=== PATIENT | female | born 1965 | race Two or more races ===

== ENCOUNTER 2024-11-04 15:46 | Outpatient (AMB) | payer OTHER, SELFPAY ==
--- NOTE | 2024-11-04 15:51 | MHC.OFFVIS ---
Intake Visit Reasons: Follow up Headaches HPI Comments Details: 59 yo woman, probably dependent upon opiates, also taking lorazepam and zolpidem, has depression, MCI, and migraine/chronic tension type headaches. She is presenting with chronic headache and blurred vision. She has daily headaches of varying intensity, at times escalating to the severity of migraines, which incapacitate her. On less severe days, she persists with her regular routine despite the discomfort. Complaints of blurred vision are significant, characterized by a persistent sensation of a film over her eyes, and are managed with glasses, although they were recommended corrective surgery which she has declined. Additionally, the patient suffers from Temporomandibular Joint Dysfunction (TMD), where the repetitive clenching and jaw tension potentially aggravate the headache symptoms, sometimes affecting her jaw mobility. The overarching symptoms point towards chronic headaches with possible overlapping tension-type factors exacerbated by jaw dysfunction. Review of Systems Const Details: - Neurological: Reports chronic headaches; denies episodes of loss of consciousness or seizures. - Eye: Reports blurred vision; denies diplopia; reports sensation of a film over eyes. - Musculoskeletal: Reports jaw tightness and clenching; difficulty opening jaw. Assessment & Plan Assessment & Plan (1) Chronic tension type headache: Comment: Meds tried: Topiramate, Depakote, sumatriptan, duloxetine, cyclobenzaprine, metoprolol, oxycodone, Fiorecet MRI brain WWO at [facility] in Apr 2022: OK. Code(s): G44.229 - Chronic tension-type headache, not intractable Category: Medical Qualifiers: Intractability: intractable Qualified Code(s): G44.221 - Chronic tension-type headache, intractable Plan Impression: a: Chronic daily headache b: Chronic tension type headache Rec: a: ESR/CRP/Lyme test b: Verapamil 120mg once a day c: IF labs are ok, may consider Botox treatment Orders: Orders Erythrocyte Sedimentation Rate Today G44.221 - Chronic tension-type headache, intractable CRP High Sensitivity Today G44.221 - Chronic tension-type headache, intractable Lyme IgG/IgM w/reflex to WB Today G44.221 - Chronic tension-type headache, intractable Coding Level of Care Code Est Pt Level 4 (03631) Diagnoses Chronic tension-type headache, intractable G44.221 Intractability: intractable
--- OUTSIDE RECORDS SUMMARY | 2024-11-04 18:36 | XMS_ITS ---
Author Name [facility] Organization Unknown History of Medication Use Medication Directions Dispensed Refills Start Date End Date Stat loratadine (CLARITIN) 10 mg tablet TAKE 1 TABLET BY MOUTH EVERY DAY 06/25/2024 active dicyclomine (BENTYL) 20 mg tablet Take 1 tablet (20 mg total) by mouth 4 (four) times a day (before meals and nightly). 06/19/2024 active anastrozole (ARIMIDEX) 1 mg Take 1 tablet (1 mg total) by mouth 1 (one) time each day Swallow whole with a drink of water. 05/29/2024 active linaCLOtide (LINZESS) 290 mcg capsule Take 1 capsule (290 mcg total) by mouth 1 (one) time each day. 05/06/2024 active rosuvastatin (CRESTOR) 20 mg tablet TAKE 1 TABLET BY MOUTH EVERY DAY 2024 active irbesartan (AVAPRO) 150 mg tablet TAKE 1 TABLET BY MOUTH EVERY DAY 04/16/2024 active metoprolol tartrate (LOPRESSOR) 25 mg tablet TAKE 1 TABLET BY MOUTH TWICE A DAY 04/16/2024 active tirzepatide, weight loss, (Zepbound) 2.5 mg/0.5 mL injection Inject 0.5 mL (2.5 mg total) under the skin every 7 (seven) days. 04/09/2024 active aspirin 81 mg EC tablet TAKE 1 TABLET BY MOUTH EVERY DAY 03/28/2024 active ezetimibe (ZETIA) 10 mg tablet TAKE 1 TABLET BY MOUTH EVERY DAY 03/28/2024 active diclofenac (VOLTAREN) 1 % topical gel Apply 2 g topically 2 (two) times a day. 01/31/2024 active cholecalciferol (VITAMIN D-3) 50 mcg (2,000 unit) capsule Take 1 capsule (2,000 Units total) by mouth 1 (one) time each day. 09/18/2023 active sucralfate (Carafate) 100 mg/mL suspension TAKE 10 ML BY MOUTH 4 TIMES A DAY 08/24/2023 active DULoxetine (CYMBALTA) [address] capsule Take 1 capsule (60 mg total) by mouth 1 (one) time each day. 07/13/2023 active pantoprazole (PROTONIX) 40 mg EC tablet Take 1 tablet (40 mg total) by mouth 1 (one) time each day. 07/10/2023 active cyclobenzaprine (FLEXERIL) 10 mg tablet Take 1 tablet (10 mg total) by mouth 3 (three) times a day if needed. 04/04/2023 active diclofenac sodium 3 % gel Apply 2 g topically 2 times daily as needed (tiesha shoulder pain). 03/28/2023 active lidocaine (LIDODERM) 5 % patch Place 3 Patches onto the skin every 24 hours for 90 days. Apply for no more than 12 hours in any 24 hour period. 03/16/2023 active topiramate (TOPAMAX) 200 mg tablet Take 1 tablet by mouth at bedtime. 03/23/2021 active oxyCODONE (ROXICODONE) 15 mg immediate release tablet Take 1 tablet by mouth 4 times daily as needed for Pain for up to 28 days. 09/07/2020 active promethazine (PHENERGAN) 12.5 mg tablet Take 1 Tab by mouth every 8 hours as needed for Nausea. Start after surgery if needed for nausea 04/06/2020 active LORazepam (ATIVAN) 1 mg tablet 1 Tab at bedtime. 01/02/2016 active acetaminophen (TYLENOL) 500 mg tablet Sig: TAKE 2 TABLETS BY MOUTH EVERY 6 HOURS NEEDED FOR PAIN FOR UP TO 30 DAYS Sent to pharmacy as: Acetaminophen Extra Strength 500 MG Oral Tablet active diclofenac (VOLTAREN) 75 mg EC tablet Sig: TAKE 1 TABLET BY MOUTH TWICE A DAY NEEDED FOR 30 DAYS active divalproex (DEPAKOTE) [address] tablet Take 1 tablet (250 mg total) by mouth 1 (one) time each day. active docusate sodium (COLACE) 100 mg capsule Sig - Route: Take 1 Capsule by mouth 2 times daily. - Oral Sent to pharmacy as: Docusate Sodium 100 MG Oral Capsule (COLACE) active ondansetron ODT (ZOFRAN-ODT) 4 mg disintegrating tablet Dissolve on top of the tongue. Sig: TAKE 1 TABLET BY MOUTH EVERY 8 HOURS NEEDED NAUSEA active rizatriptan (MAXALT) 10 mg tablet Sig - Route: Take 1 Tablet by mouth as needed. May repeat in 2 hours if needed - Oral active senna-docusate (PERICOLACE) 8.6-50 mg per tablet Sig - Route: Take 2-3 Tablets by mouth daily. - Oral active SUMAtriptan (IMITREX) 50 mg tablet Sig: TAKE 1 TABLET NEEDED FOR MIGRAINE, CAN REPEAT IN 2 HOURS IF NEEDED *FOR 30 DAYS* active zolpidem (AMBIEN) 10 mg tablet Sig: TAKE 1 TABLET BY MOUTH AT BEDTIME NEEDED FOR INSOMNIA Sent to pharmacy as: Zolpidem Tartrate 10 MG Oral Tablet active Allergies Allergen Reaction Severity Comment Documented Date Source Statu s NITROGLYCERIN 07/02/2021 [facility] acti ve CAPTOPRIL COUGH cough 10/20/2015 [facility] active PROPRANOLOL ITCHING 05/10/2010 [facility] active GABAPENTIN RASH [facility] PREGABALIN RASH [facility] Problems Problem Status Onset Date Problem Type Date of Resoluti on Source Class 1 obesity due to excess calories with serious comorbidity and body mass index (BMI) of 32.0 to 32.9 in adult active 2023-11-27 ProblemAct [facility] Impaired swallowing active 2023-11-27 ProblemAct [facility] Ischial bursitis of left side active 2023-11-27 ProblemAct [facility] Degenerative arthritis of lumbar spine active 2009-07-15 ProblemAct [facility] Arthritis active 2023-11-27 ProblemAct [facility] Chronic musculoskeletal pain active 2017-01-24 ProblemAct [facility] Esophageal dysmotility active 2019-03-29 ProblemAct [facility] Chronic pain syndrome active 2023-11-27 ProblemAct [facility] Headache active 2023-11-27 ProblemAct [facility] Leucopenia active 2023-11-27 ProblemAct [facility] Radiculitis, lumbosacral active 2009-07-22 ProblemAct [facility] HTN (hypertension) active 2017-04-24 ProblemAct [facility] Intestinal malabsorption following gastrectomy active 2019-05-02 ProblemAct [facility] Weight loss active 2023-11-27 ProblemAct [facility] Breast cancer ([facility] V24, [facility] V28) active 2021-04-14 ProblemAct [facility] Intractable left heel pain active 2017-10-31 ProblemAct [facility] Vitamin D deficiency active 2017-04-24 ProblemAct [facility] Complication of surgical procedure active 2010-06-28 ProblemAct [facility] Uterovaginal prolapse, incomplete active 2017-04-24 ProblemAct [facility] Cervical radiculopathy active 2017-04-24 ProblemAct [facility] Plantar fasciitis active 2009-07-15 ProblemAct [facility] Callus active 2016-06-21 ProblemAct [facility] Knee pain, left active 2018-03-21 [address] [facility] Allergic rhinitis active 2017-04-24 ProblemAct [facility] Malignant neoplasm of overlapping sites of left breast in female, estrogen receptor positive (CMS/HCC V24, [facility] V28) active 2023-11-27 ProblemAct [facility] Chronic right shoulder pain active 2020-02-06 ProblemAct [facility] Gastroesophageal reflux disease without esophagitis active 2023-11-27 ProblemAct [facility] Primary osteoarthritis of right knee active 2023-11-27 ProblemAct [facility] Chronic constipation active 2017-04-24 ProblemAct [facility] Insomnia active 2017-04-24 ProblemAct [facility] Female cystocele active 2023-11-27 ProblemAct [facility] Migraine headache active 2023-11-27 ProblemAct [facility] Anxiety and depression active 2017-04-24 ProblemAct [facility] Neck pain on left side active 2023-11-27 ProblemAct [facility] Therapeutic opioid-induced constipation (OIC) active 2018-05-23 ProblemAct [facility] Prediabetes active 2016-03-28 ProblemAct [facility] Post laminectomy syndrome active 2023-11-27 ProblemAct [facility] Choking sensation active 2017-09-04 ProblemAct [facility] Hyperlipidemia active 2017-04-24 ProblemAct [facility] Chest pain active 2021-05-18 ProblemAct [facility] Fatigue active 2023-11-27 ProblemAct [facility] Disorder of tendon of shoulder region, right active 2013-04-09 ProblemAct [facility] Morbid obesity with BMI of 40.0-44.9, adult (CMS/HCC V24, CMS/HCC V28) active 2023-11-27 ProblemAct [facility] Epigastric pain active 2023-11-[address] [facility] Multiple thyroid nodules active 2017-09-05 ProblemAct [facility] Left thyroid nodule active 2017-04-24 ProblemAct [facility] NATALIIA (obstructive sleep apnea) active 2017-04-24 ProblemAct [facility] Chronic low back pain active 2009-07-15 ProblemAct [facility] Immunizations Vaccine Date Source Lot Number Status Influenza trivalent, with pr eservative (Fluzone; Afluria) 6mo and older 11/30/2016 [facility] completed Care Team Organization Name Specialty Phone Email Start Date End Da te [facility] 01/04/2022 10/16/2023
== END 2024-11-04 16:04 | disposition home or self-care (01) ==
PROVIDERS: Visit Provider Psychiatry & Neurology Neurology
DX: G44.221 Chronic tension-type headache, intractable (principal)
CPT/HCPCS: 99214

== ENCOUNTER 2024-11-04 15:46 | Outpatient (REF) | payer OTHER, SELFPAY ==
[2024-11-05 09:04] LABS: Lyme Abs Screen <0.90 index
== END 2024-11-04 15:47 | disposition home or self-care (01) ==
LOC: HO.LAB 15:46
PROVIDERS: PCP Physician Assistant; Visit Provider Psychiatry & Neurology Neurology
DX: G44.221 Chronic tension-type headache, intractable (principal)
CPT/HCPCS: 36415; 85652; 86141; 86617; 86618; 99212

== ENCOUNTER 2024-11-08 09:50 | Outpatient (AMB) | payer OTHER, SELFPAY ==
--- NOTE | 2024-11-08 10:21 | MHC.OFFVIS ---
Vital Signs 11/08/24 10:24 BP 122/82 Blood Pressure Location Rt brachial Position Sitting Pulse 60 Intake Visit Reasons: follow up Commutator [employer] Ring Assembler Required: Yes Commutator V Ring Assembler Services: Commutator V Ring Assembler Present Commutator V Ring Assembler Name: Video Information Interpreted: non-clinical & clinical Allergies No Known Allergies Allergy (Verified 11/08/24 10:31) Medication List - Last Reconciled 11/08/24 by Jacquie Hernandez CNP apixaban (Eliquis) 5 mg PO BID aspirin 81 mg PO DAILY buspirone 15 mg PO BID buspirone 10 mg PO BID cyanocobalamin (vitamin B-12) mcg IM diclofenac sodium 1% 2 grams topical BID duloxetine 60 mg PO DAILY ezetimibe 10 mg PO DAILY linaclotide (Linzess) 290 mcg PO DAILY loratadine 10 mg PO DAILY lorazepam 1 mg PO BID PRN oxycodone 15 mg PO QID pantoprazole 40 mg PO DAILY prednisone 20 mg PO DAILY quetiapine 300 mg PO BEDTIME rosuvastatin 20 mg PO DAILY topiramate 200 mg PO BEDTIME zolpidem 10 mg PO BEDTIME PRN HPI Comments Details: This is a 59-year-old female patient with a past medical history of depression, mCi, and migraines/chronic tension-type headaches who was here today for a follow-up evaluation. She was previously seen by Dr. Ross thakur on 11/04/2024 at which time headaches were discussed including headaches with accompanying blurry vision. Headaches at that time were varying in intensity. Her history was notable also for TMJ dysfunction and she has a history of profound bruxism likely aggravating her symptoms. Because of the blurry vision and location of her pain including the temporal area and jaw on the left side, labs were ordered including inflammatory markers (ESR and CRP). Her verapamil was increased to 120 mg nightly for preventive. It was thought Botox could be considered for treatment. She tells me today that she did have her labs completed on 11/04/2024 and she started the higher dose of verapamil. She has not yet seen any difference. Inflammatory markers from this date were mildly elevated (ESR of 22 and CRP of 5.4). She tells me that her vision symptoms are described as a film over her eyes and she has been seeing [facility] in [place] who feel that it is related to cataracts. Her last eye exam was approximately 15 days ago. They did not know any concerns aside from the cataracts on their exam according to the patient. Her head pain is unilateral. It is located on the left side primarily to the jaw and left temporal. The point of maximum tenderness however is distinctly over the auricular temporal nerve and she does also have some discomfort to the occipital area. Her pain is made worse especially when chewing on the left side with talking and opening her mouth on the left side. Although her intense/acute pain started approximately 2 months ago, she has had similar symptoms starting approximately in 2012. She estimates that from 2012 until about 2022, she had on and off pain to the left side of her head similar to what she experiences now. Over the course of last 2 years she had noted an improvement in her pain however her extreme pain has returned similar to prior. She has not yet seen a TMJ specialist however she does note that on 11/28/2024 she will be going to [place] to be evaluated and possibly have a procedure for TMJ dysfunction. She tells me that her sister had a [facility] procedure with success and that there are ?a lot of jaw problems in her family?. Past medication trials have included: Topiramate-currently taking 200 mg daily at bedtime Metoprolol currently taking for other health reasons Verapamil-dose was recently increased to 120 mg nightly (too early to see affect at this point) Depakote Duloxetine Cyclobenzaprine Oxycodone Fioricet Sumatriptan Review of Systems Const Reports as per HPI Physical Exam Const Orientation/consciousness: patient oriented x3 HEENT Head: Yes normal to inspection, No Temporal artery tenderness present and Yes other (Tenderness over the left auricular temporal nerve and left CHITO) Eyes Pupils: Equal, round and reactive pupils present Neuro General: patient oriented x3 Cranial nerves: Yes CN's II-XII intact bilaterally and Yes Equal, round and reactive pupils present Cognition (Neuro): normal cognition Gait exam (Neuro): Normal gait present Motor exam (neuro): 5/5 motor strength present throughout Sensory Exam: Bilaterally intact graphesthesia Deep tendon reflexes (DTR's): Right triceps reflex intensity grade: 2+, Left triceps reflex intensity grade: 2+, Rt Biceps (C5, C6): 2+, Left biceps reflex intensity grade: 2+, Right brachioradialis reflex intensity grade: 2+, Left brachioradialis reflex intensity grade: 2+, Right patellar reflex intensity grade: 2+, Left patellar reflex intensity grade: 2+, Right ankle reflex intensity grade: 2+ and Left ankle reflex intensity grade: 2+ Coordination: [id number] test normal Psych Appearance: grossly normal Mental Status: mental status grossly normal Speech and movement: Normal speech and movement present Affect: normal affect Attitude: cooperative Thought process: Normal thought process present Assessment & Plan Assessment & Plan (1) Left-sided headache: Code(s): R51.9 - Headache, unspecified Category: Medical Plan: . (2) Jaw pain: Code(s): R68.84 - Jaw pain Category: Medical Plan: . (3) Occipital pain: Code(s): R51.9 - Headache, unspecified Category: Medical Plan: . Plan This is a 59-year-old female patient with a past medical history of depression, MCI, and migraines/chronic tension-type headaches who was here today for a follow-up evaluation. Headaches are left-sided accompanying by tenderness over the preauricular area as well as the left occipital area. There are no tender areas to the right side of her head. Sometimes however her pain will radiate to the right side when more severe. She is currently having difficulty with opening her jaw and chewing due to her pain. She does have a history of similar headaches in the past and has a ?family history of jaw problems . We did perform inflammatory markers which were both mildly elevated. She is not experiencing any acute vision problems though does note some blurry vision for which she is being seen by the [facility] in [place] who feels that this is related to cataracts. They recommended surgery. She last saw the [facility] team approximately 15 days ago. I discussed this case with Dr. Hawkins . We will send for a short course of prednisone. I will see her again in 1 week for auricular temporal and occipital nerve block injections for acute pain. I did explain to the patient the procedure and reviewed the risks of this procedure especially with anticoagulation therapy. This was also reviewed with the attending physician who agrees it would be okay to proceed with caution. She will be leaving the country in November to have an evaluation and possible procedure in [place] because her sister had success with a similar procedure in the past. Reasonably, we can consider Botox therapy however because of her departure to another country it would be reasonable to consider this upon her return. In the future, we can also consider physical therapy for her jaw though this would be performed once pain is under control. -start a course of prednisone (20 mg daily x5 days) -Return in 1 week for left-sided auricular temporal and occipital nerve block injection -She leaves the country in early November for evaluation and possible procedure to her jaw -Pending response to prednisone and nerve blocks, consider trial of Botox therapy as recommended by Dr. Hawkins (difficult to start now pending that she is leaving the country soon) -Continue to follow up with Ophthalmology -Once pain is better controlled, could also consider PT for TMJ Medications: New prednisone 20 mg PO DAILY 5 tabs 0RF Coding Level of Care Code Est Pt Level 4 (40197) Diagnoses Left-sided headache R51.9 Jaw pain R68.84 Occipital pain R51.9
[2024-11-08 10:24] VITALS: BP 122/82; PULSE 60
== END 2024-11-08 11:04 | disposition home or self-care (01) ==
LOC: HO.HSM 09:50
PROVIDERS: PCP Physician Assistant; Visit Provider Nurse Practitioner
DX: R51.9 Headache, unspecified (principal); R68.84 Jaw pain
CPT/HCPCS: 99214

== ENCOUNTER → 2024-11-08 09:50 | Outpatient (BNVA) | payer OTHER, SELFPAY | PROVIDERS: PCP Physician Assistant; Visit Provider Nurse Practitioner | DX: R51.9 Headache, unspecified (principal); R68.84 Jaw pain | CPT/HCPCS: 99212 ==

== ENCOUNTER 2025-01-29 15:11 | Outpatient (AMB) | payer OTHER, SELFPAY ==
--- NOTE | 2025-01-29 15:13 | A.OFFVIS_ITS ---
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 She was previously seen by Dr. Hawkins last on 11/04/2024 at which time headaches were discussed including headaches with accompanying blurry vision. Headaches at that time were varying in intensity. Her history was notable also for TMJ dysfunction and she has a history of profound bruxism likely aggravating her symptoms. Because of the blurry vision and location of her pain including the temporal area and jaw on the left side, labs were ordered including inflammatory markers (ESR and CRP). Her verapamil was increased to 120 mg nightly for preventive. It was thought Botox could be considered for treatment. I saw her in follow up on 11/04/2024 at which time she reported that she had head pain predominantly to the left side in the area of the jaw and left temporal muscle. My exam displayed distinct tenderness over the left auricular temporal nerve and some discomfort over the left occipital area as well. Pain become intense and was significantly disrupting her day-to-day life. With her headaches however she also had accompanying light and sound sensitivity and nausea. Plan at the time of last visit was to have her come back for auricular temporal and occipital nerve blocks for acute treatment (caution with the use of Eliquis), but to consider Botox moving forward to alleviate/correct bruxism. She would also plan to go to [place] for a procedure for her jaw but never did have any procedure completed when she went. She was however fitted for a mouth guard but opted not to purchase it. Past medication trials have included: Topiramate-currently taking 200 mg daily at bedtime Metoprolol currently taking for other health reasons Verapamil-dose was recently increased to 120 mg nightly (too early to see affect at this point) Depakote Duloxetine Cyclobenzaprine Oxycodone Fioricet Sumatriptan Review of Systems Const All systems reviewed & are unremarkable except as noted in HPI and below Physical Exam Vital Signs: Last Vital Signs Pulse 71 01/29/25 15:19 Resp 16 01/29/25 15:19 BP 110/66 01/29/25 15:19 Pulse Ox 98 01/29/25 15:19 Oxygen Delivery Method Room Air 01/29/25 15:19 BMI result Body Mass Index 31.9 Const Orientation/consciousness: patient oriented x3 HEENT Head: Yes normal to inspection, No Temporal artery tenderness present and Yes other (Tenderness over the left auricular temporal nerve and left CHITO) Eyes Pupils: Equal, round and reactive pupils present Neuro Other: Left auricular temporal nerve and occipital nerve tenderness. Tenderness over the left temporalis muscle. General: patient oriented x3 Cranial nerves: Yes CN's II-XII intact bilaterally and Yes Equal, round and reactive pupils present Cognition (Neuro): normal cognition Gait exam (Neuro): Normal gait present Motor exam (neuro): 5/5 motor strength present throughout Sensory Exam: Bilaterally intact graphesthesia Deep tendon reflexes (DTR's): Right triceps reflex intensity grade: 2+, Left triceps reflex intensity grade: 2+, Rt Biceps (C5, C6): 2+, Left biceps reflex intensity grade: 2+, Right brachioradialis reflex intensity grade: 2+, Left brachioradialis reflex intensity grade: 2+, Right patellar reflex intensity grade: 2+, Left patellar reflex intensity grade: 2+, Right ankle reflex intens ity grade: 2+ and Left ankle reflex intensity grade: 2+ Coordination: [id number] test normal Psych Appearance: grossly normal Mental Status: mental status grossly normal Speech and movement: Normal speech and movement present Affect: normal affect Attitude: cooperative Thought process: Normal thought process present Assessment & Plan Assessment & Plan (1) Jaw pain: Code(s): R68.84 - Jaw pain Category: Medical (2) Chronic tension type headache: Comment: Meds tried: Topiramate, Depakote, sumatriptan, duloxetine, cyclobenzaprine, metoprolol, oxycodone, Fiorecet MRI brain [facility] at [facility] in Apr 2022: [place]. Code(s): G44.229 - Chronic tension-type headache, not intractable Category: Medical Qualifiers: Intractability: intractable Qualified Code(s): G44.221 - Chronic tension-type headache, intractable (3) Left-sided headache: Code(s): R51.9 - Headache, unspecified Category: Medical (4) Chronic migraine without aura without status migrainosus, not intractable: Code(s): G43.709 - Chronic migraine without aura, not intractable, without status migrainosus Category: Medical (5) Occipital pain: Code(s): R51.9 - Headache, unspecified Category: Medical Plan This is a 59-year-old female patient with a past medical history of depression, mci, and migraines/chronic tension-type headaches who was here today for a follow-up evaluation. Unfortunately I am not able to perform procedure today due to insurance barriers however I do still think that she would be a good candidate for a left auricular temporal nerve block, left occipital nerve block, and possibly left temporalis trigger point injections for acute pain relief. We should also send prior authorization for Botox therapy for long-term relief of bruxism and related migraine-type headaches. She is currently experiencing daily left occipital headaches accompanied by light and sound sensitivity and nausea fitting criteria for chronic migraine. -submit prior authorization for Botox therapy -have patient return to the clinic for nerve blocks and trigger points -have patient return to the clinic to have Botox procedure once prior authorization has been established at least 1 month after nerve block and trigger point injections -cyclobenzaprine 5 mg at bedtime in the time being Medications: New cyclobenzaprine 5 mg PO BEDTIME 30 tabs 5RF 30 days Coding Level of Care Code Est Pt Level 4 (96184) Diagnoses Jaw pain R68.84 Chronic tension-type headache, intractable G44.221 Intractability: intractable Left-sided headache R51.9 Chronic migraine without aura without status migrainosus, not intractable G43.709 Occipital pain R51.9
[2025-01-29 15:19] VITALS: BP 110/66; PULSE 71; RESP 16; O2SAT 98; BMI 31.9
== END 2025-01-29 15:42 | disposition home or self-care (01) ==
PROVIDERS: PCP Physician Assistant; Visit Provider Nurse Practitioner
DX: R68.84 Jaw pain (principal); G44.221 Chronic tension-type headache, intractable; R51.9 Headache, unspecified; G43.709 Chronic migraine without aura, not intractable, without status migrainosus
CPT/HCPCS: 99214

== ENCOUNTER → 2025-01-29 15:11 | Outpatient (BNVA) | payer OTHER, SELFPAY | PROVIDERS: PCP Physician Assistant; Visit Provider Nurse Practitioner | DX: G44.221 Chronic tension-type headache, intractable (principal); G43.709 Chronic migraine without aura, not intractable, without status migrainosus; R68.84 Jaw pain | CPT/HCPCS: 99212 ==